=== PATIENT | male | born 1960 | race Caucasian/White ===

== ENCOUNTER 2022-05-26 11:10 | Inpatient (IN) ==
[2022-05-26] MEDS ORDERED: IOPAMIDOL 100 ML BOTTLE IV ONE (11:11)
--- NOTE | 2022-05-26 11:30 | Emergency Department Note ---
HPI General Chief complaint: Abdominal Pain Stated complaint: Bowl obstruction Time Seen by Provider: 05/26/22 11:29 Source: patient Mode of arrival: ambulatory Limitations: no limitations History of Present Illness HPI Narrative: Narrative: Patient is a 61 yo male who presents to the emergency department from the [facility] due to concern for SBO. Patient endorses 4 days of abdominal pain and states that he has days without a bowel movement. He states that he has also had a decrease in gas. He states that he had one other episode of SBO 10 to 15 years ago. He states that this feels the same as that episode. Related Data Home Medications Medication Instructions Recorded Confirmed hydrochlorothiazide 12.5 mg tablet 12.5 mg PO QAM 08/16/20 05/26/22 amlodipine 10 mg tablet 5 mg PO QAM 03/30/22 05/26/22 benazepril 10 mg tablet 40 mg PO QAM 03/30/22 05/26/22 escitalopram oxalate 10 mg tablet 20 mg PO QDAY 03/30/22 05/26/22 (Lexapro) finasteride 5 mg tablet 5 mg PO QPM 03/30/22 05/26/22 pyridostigmine bromide 60 mg tablet 60 mg PO QAM 03/30/22 05/26/22 naproxen sodium 220 mg tablet 440 mg PO QHS 05/15/22 05/26/22 dextroamphetamine-amphetamine 10 1 tab PO QDAY 05/22/22 05/26/22 mg tablet solifenacin 5 mg tablet 5 mg PO QPM 05/22/22 05/26/22 tadalafil 5 mg tablet 5 mg PO QPM 05/22/22 05/26/22 trazodone 50 mg tablet 100 mg PO QHS 05/22/22 05/26/22 Previous Rx's Medication Instructions Recorded tamsulosin 0.4 mg capsule 0.4 mg PO QHS #30 caps 04/10/22 Allergies Allergy/AdvReac Type Severity Reaction Status Date / Time Tetanus Vaccines and Toxoid Allergy Intermediate Swelling Verified 05/26/22 11:11 Review of Systems ROS ROS Narrative: Narrative: Constitutional: Denies fever or weakness Eyes: Denies eye pain or vision change ENT ED: Denies throat pain, hearing loss or rhinorrhea Cardiovascular: Denies chest pain, dyspnea on exertion, orthopnea or edema Respiratory: Denies shortness of breath or cough Gastrointestinal: Reports abdominal pain and constipation; Denies diarrhea, hematochezia or melena Genitourinary: Denies dysuria, frequency, hematuria or incontinence Musculoskeletal: Denies back pain or myalgia Integumentary: Denies rash or lesions Neurological: Denies headache, weakness, numbness, confusion, abnormal gait or dizziness Psychiatric: Denies anxiety, suicidal thoughts or homicidal thoughts Endocrine: Denies fatigue or polyuria Hematological/Lymphatic: Denies easy bleeding or easy bruising PFS Narrative Patient History Narrative: Narrative: Medical/Surgical/Family History All Active Problems (Updated 05/26/22 @ 18:16 by Minh Pleitez MD) SBO (small bowel obstruction) (Acute) Acute URI (Chronic) Pain, joint, shoulder, right (Chronic) Other obesity due to excess calories (Chronic) Equinus contracture of ankle (Chronic) Plantar fasciitis, left (Chronic) Hypertension (Chronic) Elevated liver enzymes (Chronic) Decreased renal function (Chronic) ADD (attention deficit disorder) (Chronic) Myasthenia gravis with (acute) exacerbation (Chronic) Chronic insomnia (Chronic) 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) Rotator cuff injury (Chronic) Renal structural abnormality (Acute) Atrophy of right kidney (Acute) Obstruction of left ureteropelvic junction (UPJ) (Acute) Duplicated renal collecting system (Acute) Medical History Acute URI ADD (attention deficit disorder) Chronic insomnia Decreased renal function Elevated liver enzymes Equinus contracture of ankle Hypertension Myasthenia gravis with (acute) exacerbation Other obesity due to excess calories Pain, joint, shoulder, right Plantar fasciitis, left Rotator cuff injury Varicose veins of bilateral lower extremities with other complications Surgical History History of colonoscopy (~2004) History of knee surgery Bilateral - meniscus History of surgery (~1971) re-plumbed kidney History of thymectomy History of tonsillectomy Family History Mother Hypertension Social History Smoking Status: Never smoker Alcohol Intake Frequency: 0-2 drinks per day Substance Use: does not use Exam Narrative Narrative: Narrative: General Limitations: no limitations General appearance: Present alert; Absent anxious or appears intoxicated Head Head: Present atraumatic and normocephalic Eye Eye: Present PERRL and EOMI; Absent scleral icterus ENT ENT: Present mucous membranes moist; Absent nasal congestion Neck Neck: Present full ROM; Absent tenderness Chest Chest: Present normal inspection and symmetric chest wall rise; Absent tenderness Respiratory Respiratory: Present normal lung sounds bilaterally; Absent respiratory distress or accessory muscle use Cardiovascular Cardiovascular: Present regular rate, normal rhythm and normal heart sounds Adbominal Abdominal: Present soft, tenderness and diminished bowel sounds; Absent normal bowel sounds Extremities Extremities: Present normal inspection and full ROM; Absent tenderness Back Back: Present normal inspection and full ROM; Absent tenderness Neurological Neurological: Present alert and oriented X3 Psychiatric Psychiatric: Present normal affect and normal mood Skin Skin: Present warm (WNL), dry and normal color Course Vital Signs Vital signs: Vital Signs Temperature 98.4 F 05/26/22 11:11 Pulse Rate 88 05/26/22 11:11 Respiratory Rate 18 05/26/22 11:11 Blood Pressure 153/90 05/26/22 11:11 Pulse Oximetry (%) 98 05/26/22 11:11 Oxygen Delivery Method 05/26/22 11:11 Temperature 98.7 F 05/29/22 16:42 Pulse Rate 79 05/29/22 16:42 Respiratory Rate 20 05/29/22 16:42 Blood Pressure 158/89 05/29/22 16:42 Pulse Oximetry (%) 96 05/29/22 16:42 Oxygen Delivery Method 05/29/22 16:42 [facility] MDM Narrative Medical decision making narrative: Narrative: Patient is a 61 yo male who presents to the emergency department from the [facility] due to concern for SBO. Given patient's history of SBO, decrease in bowel movements and gas, it is possible that patient has a small bowel obstruction. Patient's CT scan does demonstrate a partial SBO. I have spoken with surgery who agrees to see and evaluate patient. They did request a hospitalist admission due to patient history of myasthenia gravis. I have spoken to Dr. Moreira who also agrees to see and evaluate this patient for admission. Lab Data Result diagrams: 05/28/22 05:34 05/28/22 05:34 Labs: Lab Results 05/26/22 05/26/22 05/26/22 Range/Units 12:37 12:37 12:46 WBC 10.9 (4.5-11.0) K/mcL RBC 5.11 (4.63-6.08) M/mcL Hgb 16.3 (13.7-17.5) g/dL Hct 47.8 (40.1-51.0) % POC Hct 49.0 (41-55) MCV 93.5 (80.0-100.0) fL MCH 31.9 (26.0-34.0) pg MCHC 34.1 (31.0-36.0) g/dL RDW 11.8 (11.5-14.5) % Plt Count 213 (140-440) K/mcL MPV 10.4 (7.4-10.4) fL Immature Gran % (Auto) 0.2 (0.0-0.5) % Neut % (Auto) 76.3 (38.0-78.0) % Lymph % (Auto) 14.5 L (15.5-49.0) % [place] % (Auto) 8.0 (1.0-12.0) % Eos % (Auto) 0.8 (0.0-7.0) % Baso % (Auto) 0.2 (0.0-2.0) % Lymph # (Auto) 1.58 (1.50-4.80) K/mcL [place] # (Auto) 0.87 (0.10-0.90) K/mcL Eos # (Auto) 0.09 (0.00-0.70) K/mcL Baso # (Auto) 0.02 (0.00-0.30) K/mcL Immature Gran # 0.02 (0.00-0.05) K/mcl Absolute Neutrophils 8.30 H (1.80-8.00) K/mcL POC Sodium 141 (133-145) POC Potassium 4.3 (3.3-5.1) POC Chloride 103 (96-108) POC Total CO2 32.0 H (22-30) POC BUN 27 H (6-20) POC Creatinine 1.6 H (0.6-1.2) POC Glucose 110 H (70-105) POC WB Ioniz Calcium 1.22 (1.16-1.32) Total Bilirubin 0.8 (0.1-1.0) mg/dL Direct Bilirubin 0.2 (<0.3) mg/dL AST 22 (<40) U/L ALT 25 (<40) U/L Alkaline Phosphatase 68 (39-117) U/L Total Protein 6.7 (5.9-8.4) gm/dL Albumin 4.1 (3.2-5.2) gm/dL Globulin 2.6 (2.2-3.7) gm/dL Lipase 15 (7-60) U/L Urine Color Urine Appearance (Clear) Urine pH (5.0-9.0) Ur Specific [place] (1.000-1.035) Urine Protein (Negative) mg/dL Urine Glucose (UA) (Negative) mg/dL Urine Ketones (Negative) mg/dL Urine Occult Blood (Negative) bo/mcL Urine Nitrate (Negative) Urine Bilirubin (Negative) mg/dL Urine Urobilinogen mg/dL Ur Leukocyte Esterase (Negative) /uL Urine RBC (0-3) /hpf Urine WBC (0-4) /hpf Ur Squamous Epith Cells (0-4) /hpf Urine Bacteria (0) /hpf Hyaline Casts (0-2) /lph Urine Mucus (None) /hpf Ur Culture Indicated? 05/26/22 Range/Units 14:50 WBC (4.5-11.0) K/mcL RBC (4.63-6.08) M/mcL Hgb (13.7-17.5) g/dL Hct (40.1-51.0) % POC Hct (41-55) MCV (80.0-100.0) fL MCH (26.0-34.0) pg MCHC (31.0-36.0) g/dL RDW (11.5-14.5) % Plt Count (140-440) K/mcL MPV (7.4-10.4) fL Immature Gran % (Auto) (0.0-0.5) % Neut % (Auto) (38.0-78.0) % Lymph % (Auto) (15.5-49.0) % [place] % (Auto) (1.0-12.0) % Eos % (Auto) (0.0-7.0) % Baso % (Auto) (0.0-2.0) % Lymph # (Auto) (1.50-4.80) K/mcL [place] # (Auto) (0.10-0.90) K/mcL Eos # (Auto) (0.00-0.70) K/mcL Baso # (Auto) (0.00-0.30) K/mcL Immature Gran # (0.00-0.05) K/mcl Absolute Neutrophils (1.80-8.00) K/mcL POC Sodium (133-145) POC Potassium (3.3-5.1) POC Chloride (96-108) POC Total CO2 (22-30) POC BUN (6-20) POC Creatinine (0.6-1.2) POC Glucose (70-105) POC WB Ioniz Calcium (1.16-1.32) Total Bilirubin (0.1-1.0) mg/dL Direct Bilirubin (<0.3) mg/dL AST (<40) U/L ALT (<40) U/L Alkaline Phosphatase (39-117) U/L Total Protein (5.9-8.4) gm/dL Albumin (3.2-5.2) gm/dL Globulin (2.2-3.7) gm/dL Lipase (7-60) U/L Urine Color Yellow Urine Appearance Clear (Clear) Urine pH 7.0 (5.0-9.0) Ur Specific [place] 1.020 (1.000-1.035) Urine Protein Trace A (Negative) mg/dL Urine Glucose (UA) Negative (Negative) mg/dL Urine Ketones Negative (Negative) mg/dL Urine Occult Blood Negative (Negative) bo/mcL Urine Nitrate Negative (Negative) Urine Bilirubin Negative (Negative) mg/dL Urine Urobilinogen Normal mg/dL Ur Leukocyte Esterase Negative (Negative) /uL Urine RBC < 1 (0-3) /hpf Urine WBC 2 (0-4) /hpf Ur Squamous Epith Cells 0 (0-4) /hpf Urine Bacteria None (0) /hpf Hyaline Casts 1 (0-2) /lph Urine Mucus Few A (None) /hpf Ur Culture Indicated? No Discharge Plan Patient/Caregiver Discharge Instructions Pt seen by HOME HEALTH CARE SOCIAL WORKER/PA only: No Activity: increase activity as tolerated Patient Disposition: Xfer As Inpt ([facility]) Discharge Date/Time: 05/26/22 17:05
[2022-05-26] MEDS ORDERED: morphine 4 MG/ML VIAL IV ONE ×2 (12:29→16:17)
[2022-05-26] MEDS ORDERED: ONDANSETRON 4 MG/2 ML VIAL IV ONE (12:30)
[2022-05-26] MEDS ORDERED: 0.9 % SODIUM CHLORIDE 1,000 ML IV ONE (12:46)
[2022-05-26 12:55] LABS: POC Calcium, Ionized 1.22 (1.16-1.32); POC Creatinine 1.6 (0.6-1.2); POC Potassium 4.3 (3.3-5.1)
[2022-05-26 13:09] LABS: Basophils # (Auto) 0.02 K/mcL (0.00-0.30); Basophils % (Auto) 0.2 % (0.0-2.0); Eosinophils # (Auto) 0.09 K/mcL (0.00-0.70); Eosinophils % (Auto) 0.8 % (0.0-7.0); Hematocrit 47.8 % (40.1-51.0); Hemoglobin 16.3 g/dL (13.7-17.5); Lymphocytes # (Auto) 1.58 K/mcL (1.50-4.80); Lymphocytes % (Auto) 14.5 % (15.5-49.0); Mean Cell Volume 93.5 fL (80.0-100.0); Mean Corpuscular HGB Conc 34.1 g/dL (31.0-36.0); Mean Platelet Volume 10.4 fL (7.4-10.4); Monocytes # (Auto) 0.87 K/mcL (0.10-0.90); Neutrophils % (Auto) 76.3 % (38.0-78.0); Platelet Count 213 K/mcL (140-440); RBC 5.11 M/mcL (4.63-6.08); Red Cell Distribution Width 11.8 % (11.5-14.5); WBC 10.9 K/mcL (4.5-11.0)
[2022-05-26 13:39] LABS: ALT/SGPT 25 U/L (<40); AST/SGOT 22 U/L (<40); Albumin 4.1 gm/dL (3.2-5.2); Alkaline Phosphatase 68 U/L (39-117); Bilirubin,Direct 0.2 mg/dL (<0.3); Bilirubin,Total 0.8 mg/dL (0.1-1.0); Globulin 2.6 gm/dL (2.2-3.7)
--- NOTE | 2022-05-26 14:35 | Cat Scan Report ---
CLINICAL INFORMATION: Abdominal pain and distention COMPARISON: CT IVP 04/14/2022. TECHNIQUE: Following enteric contrast, 80 cc of Isovue-370 were injected intravenously, and 60 seconds later, 0.625 mm helical slices were obtained from the mid heart through the subtrochanteric regions. Following reconstruction, 2.5 mm sagittal, coronal and axial reformatted images were processed and reviewed at bone, lung and soft tissue windows. Five minutes later, 0.625 mm helical slices were obtained from the mid heart through the kidneys and viewed at soft tissue windows.The exam was performed using radiation dose optimization techniques including, but not limited to, automated exposure control, adjustment of the mA and/or kV according to patient size and use of iterative reconstruction technique. FINDINGS: The lung bases are clear. No effusions. The visualized heart is grossly normal. Abdominal images show the gallbladder and bile ducts, liver, adrenal glands, spleen, pancreas and aorta, including aortic branches, are normal in size, configuration and attenuation without focal lesion. There is no free air, free fluid or adenopathy. Moderate atrophy of the right kidney (length 7 cm). There is compensatory hypertrophy of the left kidney: (length 16 cm). 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 There are two nonobstructing stones within an inferior calyx of the left kidney both less than 3 mm. No ureteral stones. Pelvic images show normal urinary bladder, prostate and seminal vesicles. There are multiple loops of proximal jejunum which are moderately dilated and the upper abdomen. Transition point is best seen on coronal image 63 and axial image 125. There is likely a stricture in this region. The small bowel and colon, distal to the transition point, are decompressed. There is no free air, free fluid no adenopathy. Bone windows show no osseous abnormality IMPRESSION: 1. Partial small bowel obstruction of the mid jejunum due to adhesions or stricture. 2. 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 Two 3 mm nonobstructing stones present in the inferior calyx of the left kidney. No obstructing ureteral stone 3. Moderate atrophy right kidney with compensatory hypertrophy of the left kidney. Interpreted and Authenticated by: Navarro Cordova 05/26/22
[2022-05-26 16:08] LABS: Appearance,Urine Clear (Clear); Bilirubin,Urine Negative (Negative); Color,Urine Yellow; Culture Indicated,Urine No; Glucose,Urine (UA) Negative (Negative); Ketones,Urine Negative (Negative); Leukocyte Esterase,Urine Negative /uL (Negative); Mucus,Urine FEW /hpf; Nitrate,Urine Negative (Negative); Protein,Urine Trace mg/dL (Negative); Urine Blood Negative ery/mcL (Negative); Urine Hyaline Cast 1 /lph (0-2); Urine RBC < 1 /hpf (0-3); Urine Squamous Epithelial Cell 0 /hpf (0-4); Urine WBC 2 /hpf (0-4); Urobilinogen,Urine Normal
--- NOTE | 2022-05-26 16:15 | XRay Report ---
CLINICAL INFORMATION: NG placement COMPARISON: None. TECHNIQUE: PA and Lateral views FINDINGS: The heart size, mediastinum and pulmonary vessels are unremarkable. The lungs are clear. There are no effusions. The bones and soft tissues are within normal limits. NG tube overlies the gastric body IMPRESSION: NG tube overlies the gastric body. No cardiopulmonary disease Interpreted and Authenticated by: Navarro Cordova 05/26/22
--- NOTE | 2022-05-26 16:20 | Internal Medicine Consult Note ---
HPI Data of Consult Consult date: 05/26/22 Primary Care Provider: Kell Pandey Consult Narrative Patient Information: Note initiated : 05/26/22 at 4:15 pm Service Date, if different from initiated Date: [] Patient: Osman Messer 61 y/o M admitted on for Bowl obstruction. Chief Complaint: [] cc:: CC: Patient presents the ED with abdominal pain nausea vomiting. Symptoms started yesterday morning and progressed. His abdominal pain is generalized with more specially in the upper abdomen.'s, severe achy. Last bowel movement was unusually small this morning. Obstruction had was [address] Pleitez was contacted. Patient carries a history of chronic kidney disease and myasthenia gravis and hypertension. Review of Systems: Pertinent positives as above. Denies headache/fever/chills/chest pain/cough/dyspnea/diarrhea. 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) Rotator cuff injury (Chronic) Renal structural abnormality (Acute) Atrophy of right kidney (Acute) Obstruction of left ureteropelvic junction (UPJ) (Acute) Duplicated renal collecting system (Acute) Medical History Acute URI ADD (attention deficit disorder) Chronic insomnia Decreased renal function Elevated liver enzymes Equinus contracture of ankle Hypertension Myasthenia gravis with (acute) exacerbation Other obesity due to excess calories Pain, joint, shoulder, right Plantar fasciitis, left Rotator cuff injury Varicose veins of bilateral lower extremities with other complications Surgical History History of colonoscopy (~2004) History of knee surgery Bilateral - meniscus History of surgery (~1971) re-plumbed kidney History of thymectomy History of tonsillectomy Family History Mother Hypertension Social History marital status: occupational status: retired occupation: [employer] smoking status: Never smoker alcohol intake frequency: 0-2 drinks per day substance use type: does not use MEDS/ALLERGIES Home Medications and Allergies Home Medications Medication Instructions Recorded Confirmed Type hydrochlorothiazide 12.5 mg tablet 12.5 mg PO QAM 08/16/20 05/26/22 History amlodipine 10 mg tablet 5 mg PO QAM 03/30/22 05/26/22 History benazepril 10 mg tablet 40 mg PO QAM 03/30/22 05/26/22 History escitalopram oxalate 10 mg tablet 20 mg PO QDAY 03/30/22 05/26/22 History (Lexapro) finasteride 5 mg tablet 5 mg PO QPM 03/30/22 05/26/22 History pyridostigmine bromide 60 mg tablet 60 mg PO QAM 03/30/22 05/26/22 History tamsulosin 0.4 mg capsule 0.4 mg PO QHS #30 caps 04/10/22 05/26/22 Rx naproxen sodium 220 mg tablet 440 mg PO QHS 05/15/22 05/26/22 History dextroamphetamine-amphetamine 10 1 tab PO QDAY 05/22/22 05/26/22 History mg tablet solifenacin 5 mg tablet 5 mg PO QPM 05/22/22 05/26/22 History tadalafil 5 mg tablet 5 mg PO QPM 05/22/22 05/26/22 History trazodone 50 mg tablet 100 mg PO QHS 05/22/22 05/26/22 History Allergies Allergy/AdvReac Type Severity Reaction Status Date / Time Tetanus Vaccines and Toxoid Allergy Intermediate Swelling Verified 05/26/22 11:11 EXAM Constitutional Vitals: Temp Pulse Resp BP Pulse Ox O2 Del Method 98.4 F 81 18 145/98 96 05/26/22 11:11 05/26/22 16:01 05/26/22 11:11 05/26/22 16:01 05/26/22 16:01 05/26/22 11:11 Exam: General: Alert, Awake, No acute Distress, obese Eyes/N/T: EOMI, PERRL, MM Head/Neck: neck supple, normocephalic atraumatic CV: RRR, No murmurs, normal s1/s2 Pulm: Clear b/l, no wheezing/rhonchi/rales Abd: soft, distended, TTP, decreased BS x4 Ext: no clubbing/cyanosis/edema Neuro: Alert, no focal deficits, moves all extremities, CN 2-12 grossly intact, symmetrical strength b/l upper/lower, sensations intact b/l upper/lower Skin: warm/dry DATA Data Completed and Pending Labs: Labs from last 24 hours 05/26/22 05/26/22 05/26/22 14:50 12:46 12:37 WBC RBC Hgb Hct POC Hct 49.0 MCV MCH MCHC RDW Plt Count MPV Immature Gran % (Auto) Neut % (Auto) Lymph % (Auto) [place] % (Auto) Eos % (Auto) Baso % (Auto) Lymph # (Auto) [place] # (Auto) Eos # (Auto) Baso # (Auto) Immature Gran # Absolute Neutrophils POC Sodium 141 POC Potassium 4.3 POC Chloride 103 POC Total CO2 32.0 H POC BUN 27 H POC Creatinine 1.6 H POC Glucose 110 H POC WB Ioniz Calcium 1.22 Total Bilirubin 0.8 Direct Bilirubin 0.2 AST 22 ALT 25 Alkaline Phosphatase 68 Total Protein 6.7 Albumin 4.1 Globulin 2.6 Lipase 15 Urine Color Yellow Urine Appearance Clear Urine pH 7.0 Ur Specific [place] 1.020 Urine Protein Trace A Urine Glucose (UA) Negative Urine Ketones Negative Urine Occult Blood Negative Urine Nitrate Negative Urine Bilirubin Negative Urine Urobilinogen Normal Ur Leukocyte Esterase Negative Urine RBC < 1 Urine WBC 2 Ur Squamous Epith Cells 0 Urine Bacteria None Hyaline Casts 1 Urine Mucus Few A Ur Culture Indicated? No 05/26/22 12:37 WBC 10.9 RBC 5.11 Hgb 16.3 Hct 47.8 POC Hct MCV 93.5 MCH 31.9 MCHC 34.1 RDW 11.8 Plt Count 213 MPV 10.4 Immature Gran % (Auto) 0.2 Neut % (Auto) 76.3 Lymph % (Auto) 14.5 L [place] % (Auto) 8.0 Eos % (Auto) 0.8 Baso % (Auto) 0.2 Lymph # (Auto) 1.58 [place] # (Auto) 0.87 Eos # (Auto) 0.09 Baso # (Auto) 0.02 Immature Gran # 0.02 Absolute Neutrophils 8.30 H POC Sodium POC Potassium POC Chloride POC Total CO2 POC BUN POC Creatinine POC Glucose POC WB Ioniz Calcium Total Bilirubin Direct Bilirubin AST ALT Alkaline Phosphatase Total Protein Albumin Globulin Lipase Urine Color Urine Appearance Urine pH Ur Specific [place] Urine Protein Urine Glucose (UA) Urine Ketones Urine Occult Blood Urine Nitrate Urine Bilirubin Urine Urobilinogen Ur Leukocyte Esterase Urine RBC Urine WBC Ur Squamous Epith Cells Urine Bacteria Hyaline Casts Urine Mucus Ur Culture Indicated? A/P Narrative A/P Narrative: A/P: *pSBO: -diet/fluids, NGT, imaging per Dr. Pleitez *Myasthenia gravis: -Patient takes pyridostigmine 60mg qAM & sometimes in evening if he feels he needs it. -Home medication reconciliation *HTN: on norvasc/acei, hctz -IV BP control for now, hold oral BP meds *Depression: *Obesity: BMI 36 *ppx: heparin Time Spent With Patient Time: Total time spent is greater than 50% in coordination of care (as documented) at patient's floor/unit and/or counseling patient:
[2022-05-26] MEDS ORDERED: ACETAMINOPHEN 325 MG TABLET PO PRN (17:17)
[2022-05-26] MEDS ORDERED: MAGNESIUM SULFATE 2 GM/50 ML BAG IV PRN (17:17)
[2022-05-26] MEDS ORDERED: IPRATROPIUM/ALBUTEROL 3 ML AMPUL.NEB NEB PRN (17:17)
[2022-05-26] MEDS ORDERED: hydrALAZINE 20 MG/ML VIAL IV PRN (17:17)
[2022-05-26] MEDS ORDERED: ONDANSETRON 4 MG/2 ML VIAL IV PRN (17:17)
[2022-05-26] MEDS ORDERED: POTASSIUM CHLORIDE 20 MEQ TABLET PO PRN ×2 (17:17)
[2022-05-26] MEDS ORDERED: morphine 4 MG/ML VIAL IV PRN (17:17)
[2022-05-26] MEDS ORDERED: POTASSIUM CHLORIDE 40 MEQ in DEXTROSE 5% IN WATER 500 ML IV PRN (17:17)
[2022-05-26] MEDS: DEXTROSE 5%-LR 1,000 ML IV SCH (18:11)
--- NOTE | 2022-05-26 18:22 | General Surg History&Physical ---
HPI History of Present Illness Patient information: Note initiated : 05/26/22 at 6:02 pm Service Date, if different from initiated Date: [] Patient: Osman Messer 61 y/o M admitted on 05/26/22 for Bowl obstruction. Chief Complaint: [] Chief complaint: Abdominal Pain and Distension History of present illness: Osman is seen today after a week or so long history of worsening abdominal pain, distension with some emesis and minimal passage of gas and stool. Imaging including a CT Scan was obtained and findings suggestive of a SBO were noted. He has a past surgical history that includes an open operation on the Right Kidney many years ago at age 13 but no other abdominal operations since. He had a bout of presumed SBO 12 or so years ago that was managed non operatively. He denies any history of malignancy or Crohns, Ulcerative Colitis or other GI issues. He also denies any known heart issues and is not on any oral anticoagulants. He has been diagnosed with Sleep Apnea but rarely uses his CPAP. He has some pain now but feels much improved relative to arrival here. Review of Systems All systems: reviewed and no additional remarkable complaints except as stated Constitutional Additional comments: no changes EENT Additional comments: history of myasthenia but no recent issues Cardiovascular Additional comments: see HPI Respiratory Additional comments: has Sleep Apnea, prescribed a CPAP Gastrointestinal Gastrointestinal: Present as per HPI Genitourinary Additional comments: Congenital kidney issues with upcoming plans for stenting Integumentary Additional comments: no recent skin changes Neurological Additional comments: no changes Psychiatric Additional comments: no changes PFSH PFSH All Active Problems (Updated 05/26/22 @ 18:16 by Minh Pleitez MD) SBO (small bowel obstruction) (Acute) Acute URI (Chronic) Pain, joint, shoulder, right (Chronic) Other obesity due to excess calories (Chronic) Equinus contracture of ankle (Chronic) Plantar fasciitis, left (Chronic) Hypertension (Chronic) Elevated liver enzymes (Chronic) Decreased renal function (Chronic) ADD (attention deficit disorder) (Chronic) Myasthenia gravis with (acute) exacerbation (Chronic) Chronic insomnia (Chronic) 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) Rotator cuff injury (Chronic) Renal structural abnormality (Acute) Atrophy of right kidney (Acute) Obstruction of left ureteropelvic junction (UPJ) (Acute) Duplicated renal collecting system (Acute) Medical History Acute URI ADD (attention deficit disorder) Chronic insomnia Decreased renal function Elevated liver enzymes Equinus contracture of ankle Hypertension Myasthenia gravis with (acute) exacerbation Other obesity due to excess calories Pain, joint, shoulder, right Plantar fasciitis, left Rotator cuff injury Varicose veins of bilateral lower extremities with other complications Surgical History History of colonoscopy (~2004) History of knee surgery Bilateral - meniscus History of surgery (~1971) re-plumbed kidney History of thymectomy History of tonsillectomy Family History Mother Hypertension Social History marital status: occupational status: retired occupation: [employer] smoking status: Never smoker alcohol intake frequency: 0-2 drinks per day substance use type: does not use MEDS/ALLERGIES Home Medications and Allergies Home Medications Medication Instructions Recorded Confirmed Type hydrochlorothiazide 12.5 mg tablet 12.5 mg PO QAM 08/16/20 05/26/22 History amlodipine 10 mg tablet 5 mg PO QAM 03/30/22 05/26/22 History benazepril 10 mg tablet 40 mg PO QAM 03/30/22 05/26/22 History escitalopram oxalate 10 mg tablet 20 mg PO QDAY 03/30/22 05/26/22 History (Lexapro) finasteride 5 mg tablet 5 mg PO QPM 03/30/22 05/26/22 History pyridostigmine bromide 60 mg tablet 60 mg PO QAM 03/30/22 05/26/22 History tamsulosin 0.4 mg capsule 0.4 mg PO QHS #30 caps 04/10/22 05/26/22 Rx naproxen sodium 220 mg tablet 440 mg PO QHS 05/15/22 05/26/22 History dextroamphetamine-amphetamine 10 1 tab PO QDAY 05/22/22 05/26/22 History mg tablet solifenacin 5 mg tablet 5 mg PO QPM 05/22/22 05/26/22 History tadalafil 5 mg tablet 5 mg PO QPM 05/22/22 05/26/22 History trazodone 50 mg tablet 100 mg PO QHS 05/22/22 05/26/22 History Allergies Allergy/AdvReac Type Severity Reaction Status Date / Time Tetanus Vaccines and Toxoid Allergy Intermediate Swelling Verified 05/26/22 11:11 Physical Examination Vital Signs Vital signs: Temp Pulse Resp BP Pulse Ox O2 Del Method 98.4 F 81 18 145/98 96 05/26/22 17:24 05/26/22 17:24 05/26/22 17:24 05/26/22 17:24 05/26/22 17:24 05/26/22 17:19 General physical appearance General physical exam: other (looks non toxic, NAD ) Eyes Eye exam: normal ocular movement; negative icteric ENT ENT exam: other (normal appearing facial exam ) Head Head exam IM: Present atraumatic, normal inspection and normocephalic Neck Neck exam: other (soft and non tender, no adenopathy ) Cardiovascular Cardiovascular exam IM: Present RRR Respiratory Respiratory exam: normal respiratory effort Abdomen Abdomen: Present soft (obese, soft, minimally tender, no mass or hernia noted ) Integumentary Integumentary: Present other (normal appearing intact skin ) Neurologic Neurologic: Present other (grossly intact ) Psychiatric Psychiatric: Present other (normal affect ) Results Labs Result diagrams: 05/26/22 12:37 Labs: Abnormal lab results 05/26/22 05/26/22 05/26/22 Range/Units 12:37 12:46 14:50 Lymph % (Auto) 14.5 L (15.5-49.0) % Absolute Neutrophils 8.30 H (1.80-8.00) K/mcL POC Total CO2 32.0 H (22-30) POC BUN 27 H (6-20) POC Creatinine 1.6 H (0.6-1.2) POC Glucose 110 H (70-105) Urine Protein Trace A (Negative) mg/dL Urine Mucus Few A (None) /hpf Diabetes panel 05/26/22 Range/Units 12:37 AST 22 (<40) U/L ALT 25 (<40) U/L Alkaline Phosphatase 68 (39-117) U/L Total Protein 6.7 (5.9-8.4) gm/dL Albumin 4.1 (3.2-5.2) gm/dL Calcium panel 05/26/22 Range/Units 12:37 Albumin 4.1 (3.2-5.2) gm/dL Adrenal panel 05/26/22 Range/Units 12:37 Total Bilirubin 0.8 (0.1-1.0) mg/dL AST 22 (<40) U/L ALT 25 (<40) U/L Alkaline Phosphatase 68 (39-117) U/L Total Protein 6.7 (5.9-8.4) gm/dL Albumin 4.1 (3.2-5.2) gm/dL All other labs normal. A/P Assessment and plan (1) SBO (small bowel obstruction): Assessment and plan: Small Bowel Obstruction, presumed adhesion related without indications for emergent operative intervention Will manage for now with NGT decompression, IVFs, pain control and observational management Issues are discussed at length with he and his . The potential need for surgery in the coming days if this doesn't resolve or worsens is discussed at length Appreciate Hospitalist Consultation regarding his Myasthenia and any other or underlying medical issues Status: Acute Time Spent With Patient Time: Total time spent is greater than 50% in coordination of care (as documented) at patient's floor/unit and/or counseling patient:
[2022-05-26] MEDS ORDERED: TAMSULOSIN 0.4 MG CAPSULE PO SCH (21:00)
[2022-05-26] MEDS: TAMSULOSIN 0.4 MG CAPSULE PO SCH (21:36)
[2022-05-26] MEDS: HEPARIN 5,000 UNIT/ML VIAL SQ SCH (21:37)
[2022-05-26] MEDS: 0.9 % SODIUM CHLORIDE 10 ML SYRINGE IV SCH (21:37)
[2022-05-26] MEDS: PROMETHAZINE 25 MG/ML VIAL IV PRN (22:45)
[2022-05-27] MEDS: DEXTROSE 5%-LR 1,000 ML IV SCH ×4 (00:55→22:23)
[2022-05-27] MEDS: BENZOCAINE 1 SPRAY BOTTLE TOPICAL PRN ×5 (01:04→20:20)
[2022-05-27] MEDS: 0.9 % SODIUM CHLORIDE 10 ML SYRINGE IV SCH ×3 (05:06→20:21)
[2022-05-27 06:53] LABS: Hematocrit 45.2 % (40.1-51.0); Hemoglobin 14.7 g/dL (13.7-17.5); Mean Cell Volume 97.8 fL (80.0-100.0); Mean Corpuscular HGB Conc 32.5 g/dL (31.0-36.0); Mean Platelet Volume 10.2 fL (7.4-10.4); Platelet Count 210 K/mcL (140-440); RBC 4.62 M/mcL (4.63-6.08); WBC 7.1 K/mcL (4.5-11.0)
--- NOTE | 2022-05-27 07:26 | Internal Med Progress Note ---
SUBJECTIVE Subjective Patient information: Note initiated : 05/27/22 at 7:24 am Service Date, if different from initiated Date: [] Patient: Osman Messer 61 y/o M admitted on 05/26/22 for Bowl obstruction. Chief Complaint: [] Interval history: Patient presents the ED with abdominal pain nausea vomiting. Symptoms started yesterday morning and progressed. His abdominal pain is generalized with more specially in the upper abdomen.'s, severe achy. Last bowel movement was unusually small this morning. Obstruction had was [address] Pleitez was contacted. Patient carries a history of chronic kidney disease and myasthenia gravis and hy pertension. 05/27 Patient's nausea is present but improving. Abdominal pain present but improving. NG tube in place with output. Patient denies bowel movement but states he has flatus this morning. Review of Systems: denies headache/fever/chills/chest pain/cough/dyspnea/diarrhea. Otherwise see above. Constitutional Vitals: Vital Signs Temp Pulse Resp BP Pulse Ox O2 Del Method 98.0 F 74 16 134/80 93 05/27/22 03:15 05/27/22 03:15 05/27/22 03:15 05/27/22 03:15 05/27/22 03:15 05/27/22 03:15 Period Temp Pulse Resp BP Sys/Briseno Pulse Ox O2 Del Method O2 Flow Rate Last 24 Hr 97.6 F-98.9 F 64-88 12-18 130-173/79-110 93-99 Room Air-Room Air Intake and Output 05/26/22 05/27/22 05/27/22 21:59 05:59 13:59 Intake Total 1300 1000 Output Total 1075 1750 Balance 225 -750 Weight 127.732 kg Intake & Output: Intake & Output 05/26/22 05/27/22 05/27/22 21:59 05:59 13:59 Intake Total 1300 1000 Output Total 1075 1750 Balance 225 -750 Weight 127.732 kg Intake: IV 1000 1000 Sodium Chloride 0.9% 1,000 ml @ 1000 Wide Open IV BOLUS ONE Rx#: [id number] Dextrose 5%-Lactated Ringers 1, 1000 000 ml @ 150 mls/hr IV .Q6H40M [facility] Rx#:[id number] Oral 300 0 Tube Feeding 0 Output: Gastric Drainage 600 1400 Left Nare 600 1400 Void Amount 475 350 Other: Urine Appearance Clear Clear Urine Color Dark Yellow Dark Yellow Exam: General: Alert, Awake, No acute Distress, obese Eyes/N/T: EOMI, Head/Neck: neck supple, CV: RRR, No murmurs, Pulm: Clear b/l, no wheezing/rhonchi/rales Abd: soft, distended, TTP, decreased BS x4 Ext: no clubbing/cyanosis/edema Neuro: Alert, no focal deficits, moves all extremities, Skin: warm/dry OBJ DATA Labs CBC & Chem 7: 05/27/22 05:54 05/27/22 05:54 Labs: Abnormal Lab Results 05/27/22 05/26/22 05/26/22 05:54 14:50 12:46 RBC 4.62 L Lymph % (Auto) Absolute Neutrophils POC Total CO2 32.0 H POC BUN 27 H POC Creatinine 1.6 H POC Glucose 110 H Urine Protein Trace A Urine Mucus Few A 05/26/22 12:37 RBC Lymph % (Auto) 14.5 L Absolute Neutrophils 8.30 H POC Total CO2 POC BUN POC Creatinine POC Glucose Urine Protein Urine Mucus Meds: Medications Acetaminophen (Acetaminophen 325 Mg Tablet) 650 mg PO Q6HP PRN; Protocol PRN Reason: Per Pain Protocol/Fever > 101 Albuterol/Ipratropium (Ipratropium/Albuterol 3 Ml Ampul.Neb) 3 ml NEB Q4HP PRN PRN Reason: Shortness Of Breath Benzocaine (Benzocaine 1 [place] Bottle) 1 spray TOPICAL PRN PRN PRN Reason: Sore Throat Last Admin: 05/27/22 06:02 Dose: 1 spray Finasteride (Finasteride 5 Mg Tablet) 5 mg PO QPM [facility] Heparin Sodium (Porcine) (Heparin 5,000 Unit/Ml Vial) 5,000 unit SQ Q12 [facility] Last Admin: 05/26/22 21:37 Dose: 5,000 unit Hydralazine HCl (Hydralazine 20 Mg/Ml Vial) 0 mg IV Q2HP PRN PRN Reason: Hypertension Potassium Chloride 40 meq/ (Dextrose) 520 mls @ 130 mls/hr IV UD PRN PRN Reason: Potassium < 3 Magnesium Sulfate (Magnesium Sulfate) 2 gm in 50 mls @ 50 mls/hr IV UD PRN PRN Reason: Magnesium </= 1.6 Dextrose/Lactated Ringer's (Dextrose 5%-Lactated Ringers) 1,000 mls @ 150 mls/hr IV .Q6H40M [facility] Last Admin: 05/27/22 00:55 Dose: 150 mls/hr Morphine Sulfate (Morphine 4 Mg/Ml Vial) 0 mg IV Q3HP PRN PRN Reason: Pain Ondansetron HCl (Ondansetron 4 Mg/2 Ml Vial) 4 mg IV Q4HP PRN PRN Reason: Nausea And Vomiting Potassium Chloride (Potassium Chloride 20 Meq Tablet) 40 meq PO UD PRN PRN Reason: Potssium is 3-3.5 Potassium Chloride (Potassium Chloride 20 Meq Tablet) 40 meq PO UD PRN PRN Reason: Potassium < 3 Promethazine HCl (Promethazine 25 Mg/Ml Vial) 12.5 mg IV Q6HP PRN PRN Reason: Nausea And Vomiting Last Admin: 05/26/22 22:45 Dose: 12.5 mg Pyridostigmine [place] (Pyridostigmine 60 Mg Tablet) 60 mg PO QAM [facility] Sodium Chloride (0.9 % Sodium Chloride 10 Ml Syringe) 10 ml IV Q8 [facility] Last Admin: 05/27/22 05:06 Dose: Not Given Tamsulosin HCl (Tamsulosin 0.4 Mg Capsule) 0.4 mg PO QHS [facility] Last Admin: 05/26/22 21:36 Dose: 0.4 mg A/P Narrative A/P Narrative: A/P: *pSBO: -diet/fluids, NGT, imaging per Dr. Pleitez *Myasthenia gravis: -Patient takes pyridostigmine 60mg qAM & sometimes in evening if he feels he needs it. - *CKD III (base Cr~1.5): *HTN: on norvasc/acei, hctz -IV BP control for now, hold oral BP meds *Depression: *Obesity: BMI 36 *BPH: on flomax/finasteride *ppx: heparin Time Spent With Patient Time: Total time spent is greater than 50% in coordination of care (as documented) at patient's floor/unit and/or counseling patient: QUALITY Stroke Symptom Onset Unknown: No VTE Deep Vein Thrombosis/Pulmonary Embolism Present on Admission: No
[2022-05-27 07:53] LABS: ALT/SGPT 21 U/L (<40); AST/SGOT 20 U/L (<40); Albumin 3.6 gm/dL (3.2-5.2); Albumin/Globulin Ratio 1.3 (1.0-2.3); Alkaline Phosphatase 59 U/L (39-117); Bilirubin,Direct < 0.2 mg/dL (0-0.3); Bilirubin,Total 0.3 mg/dL (0.1-1.0); Blood Urea Nitrogen 15 mg/dL (8-23); Calcium 8.8 mg/dL (8.6-10.4); Carbon Dioxide 28 mmol/L (22-30); Chloride 105 mmol/L (96-108); Globulin 2.7 gm/dL (2.2-3.7); Glomerular Filtration Rate 45; Glucose 111 mg/dL (70-105); Lactate Dehydrogenase 204 U/L (135-225); Phosphorous 3.3 mg/dL (2.5-4.5); Triglycerides 148 mg/dL (<150)
[2022-05-27] MEDS: ACETAMINOPHEN 650 MG/65 ML BAG IV PRN ×2 (08:26→15:10)
[2022-05-27] MEDS: HEPARIN 5,000 UNIT/ML VIAL SQ SCH ×2 (09:54→20:20)
[2022-05-27] MEDS: PYRIDOSTIGMINE 60 MG TABLET PO SCH (09:54)
--- NOTE | 2022-05-27 10:17 | XRay Report ---
CLINICAL INFORMATION: Eval SBO COMPARISON: 05/26/2022. FINDINGS: NG tip is in the gastric body. Stomach, duodenum and proximal jejunum show slight decrease in caliber compatible with improving partial small bowel obstruction. Distal small bowel and colon remain relatively decompressed. There is no free air, soft tissue mass, organomegaly or pathologic calcification. IMPRESSION: NG tube in satisfactory position. Improving partial small bowel obstruction Interpreted and Authenticated by: Navarro Cordova 05/27/22
[2022-05-27] MEDS ORDERED: SUCRETS LOZENGE PO PRN (12:09)
--- NOTE | 2022-05-27 12:09 | General Surgery Progress Note ---
SUBJECTIVE Subjective Patient information: Note initiated : 05/27/22 at 12:03 pm Service Date, if different from initiated Date: [] Patient: Osman Messer 61 y/o M admitted on 05/26/22 for Bowl obstruction. Chief Complaint: [] Looks well, non toxic, significant NGT irritation but denies any abdominal pain at this time and is passing larger amounts of gas now Constitutional Vitals: Vital Signs Temp Pulse Resp BP Pulse Ox O2 Del Method 98.3 F 74 16 149/87 94 05/27/22 07:29 05/27/22 03:15 05/27/22 07:29 05/27/22 07:29 05/27/22 07:29 05/27/22 07:29 Period Temp Pulse Resp BP Sys/Briseno Pulse Ox O2 Del Method O2 Flow Rate Last 24 Hr 97.6 F-98.9 F 66-82 12-18 130-173/79-100 93-99 Room Air-Room Air Intake and Output 05/26/22 05/27/22 05/27/22 21:59 05:59 13:59 Intake Total 1300 1000 1065 Output Total 1075 1750 Balance 225 -750 1065 Weight 281 lb 9.6 oz Intake & Output: Intake & Output 05/26/22 05/27/22 05/27/22 21:59 05:59 13:59 Intake Total 1300 1000 1065 Output Total 1075 1750 Balance 225 -750 1065 Weight 281 lb 9.6 oz Intake: IV 1000 1000 1065 Sodium Chloride 0.9% 1,000 ml @ 1000 Wide Open IV BOLUS ONE Rx#: [id number] Dextrose 5%-Lactated Ringers 1, 1000 1000 000 ml @ 150 mls/hr IV .Q6H40M [facility] Rx#:[id number] Oral 300 0 Tube Feeding 0 0 Output: Gastric Drainage 600 1400 Left Nare 600 1400 Void Amount 475 350 Other: Urine Appearance Clear Clear Urine Color Dark Yellow Dark Yellow Exam: looks well, non toxic Respiratory Additional comments: normal effort, non labored Cardiovascular Cardiovascular exam: Present RRR GI/Abdominal Additional comments: belly is soft and non tender, non distended NGT in place and functional Extremities Exam Additional comments: well perfused A/P Assessment and plan (1) SBO (small bowel obstruction): Assessment and plan: HD #2 Small Bowel Obstruction, presumed adhesion related Seems to be improving with current conservative measures Continue NGT decompression for now Small Bowel Follow Through tomorrow or Sunday dependent on availability and clinical course Cepacol lozenge PRN, repeat plain films in AM Status: Acute Time Spent With Patient Time: Total time spent is greater than 50% in coordination of care (as documented) at patient's floor/unit and/or counseling patient:
[2022-05-27] MEDS: FINASTERIDE 5 MG TABLET PO SCH (20:20)
[2022-05-27] MEDS: TAMSULOSIN 0.4 MG CAPSULE PO SCH (20:20)
[2022-05-27] MEDS: ZOLPIDEM 5 MG TABLET PO SCH (20:20)
[2022-05-28] MEDS: PROMETHAZINE 25 MG/ML VIAL IV PRN ×2 (02:04→23:40)
[2022-05-28] MEDS: 0.9 % SODIUM CHLORIDE 10 ML SYRINGE IV SCH ×3 (05:52→20:08)
[2022-05-28] MEDS: DEXTROSE 5%-LR 1,000 ML IV SCH ×4 (06:13→22:27)
[2022-05-28 06:39] LABS: Hematocrit 41.5 % (40.1-51.0); Hemoglobin 13.9 g/dL (13.7-17.5); Mean Cell Volume 97.6 fL (80.0-100.0); Mean Corpuscular HGB Conc 33.5 g/dL (31.0-36.0); Mean Platelet Volume 10.7 fL (7.4-10.4); Platelet Count 178 K/mcL (140-440); RBC 4.25 M/mcL (4.63-6.08); Red Cell Distribution Width 11.9 % (11.5-14.5); WBC 7.1 K/mcL (4.5-11.0)
[2022-05-28 07:16] LABS: Blood Urea Nitrogen 17 mg/dL (8-23); Calcium 8.5 mg/dL (8.6-10.4); Carbon Dioxide 31 mmol/L (22-30); Chloride 106 mmol/L (96-108); Glomerular Filtration Rate 49; Glucose 107 mg/dL (70-105)
--- NOTE | 2022-05-28 07:40 | Internal Med Progress Note ---
SUBJECTIVE Subjective Patient information: Note initiated : 05/28/22 at 7:39 am Service Date, if different from initiated Date: [] Patient: Osman Messer 61 y/o M admitted on 05/26/22 for Bowl obstruction. Chief Complaint: [] Interval history: Patient presents the ED with abdominal pain nausea vomiting. Symptoms started yesterday morning and progressed. His abdominal pain is generalized with more specially in the upper abdomen.'s, severe achy. Last bowel movement was unusually small this morning. Obstruction had was [address] Pleitez was contacted. Patient carries a history of chronic kidney disease and myasthenia gravis and hy pertension. 05/27 Patient's nausea is present but improving. Abdominal pain present but improving. NG tube in place with output. Patient denies bowel movement but states he has flatus this morning. 05/28 Patient reports has had several small BMs overnight. He has flatus this morning. Abdominal pain and nausea continue to improve. NG output is declining. Review of Systems: denies headache/fever/chills/chest pain/cough/dyspnea/diarrhea. Otherwise see above. Constitutional Vitals: Vital Signs Temp Pulse Resp BP Pulse Ox O2 Del Method 98.0 F 56 L 16 136/76 98 05/28/22 04:05 05/28/22 04:05 05/28/22 04:05 05/28/22 04:05 05/28/22 04:05 05/28/22 04:05 Period Temp Pulse Resp BP Sys/Briseno Pulse Ox O2 Del Method O2 Flow Rate Last 24 Hr 97.9 F-99.0 F 56-74 16-20 125-146/76-89 95-98 Room Air-Room Air Intake and Output 05/27/22 05/28/22 05/28/22 21:59 05:59 13:59 Intake Total 1065 1695 1000 Output Total 500 1400 Balance 265 776 5493 Weight 126.643 kg Intake & Output: Intake & Output 05/27/22 05/28/22 05/28/22 21:59 05:59 13:59 Intake Total 1065 1695 1000 Output Total 500 1400 Balance 847 989 4718 Weight 126.643 kg Intake: IV 1065 1635 1000 Dextrose 5%-Lactated Ringers 1, 1000 1635 1000 000 ml @ 150 mls/hr IV .Q6H40M [facility] Rx#:[id number] Oral 60 Tube Feeding 0 0 Output: Gastric Drainage 500 700 Left Nare 500 700 Void Amount 700 # of times incontinent of urine 0 Other: Urine Appearance Clear Urine Color Bright Yellow Stool Size Moderate Stool Color Brown Stool Consistency Liquid # Voids 11 # Bowel Movements 2 Exam: General: Alert, Awake, No acute Distress, obese Eyes/N/T: EOMI, Head/Neck: neck supple, CV: RRR, No murmurs, Pulm: Clear b/l, no wheezing/rhonchi/rales Abd: soft, distended, improved TTP, + BS x4 Ext: no clubbing/cyanosis/edema Neuro: Alert, no focal deficits, moves all extremities, Skin: warm/dry OBJ DATA Labs CBC & Chem 7: 05/28/22 05:34 05/28/22 05:34 Labs: Abnormal Lab Results 05/28/22 05/28/22 05/27/22 05:34 05:34 05:54 RBC 4.25 L 4.62 L MPV 10.7 H Lymph % (Auto) Absolute Neutrophils Carbon Dioxide 31 H POC Total CO2 Anion Gap 5.0 L POC BUN Creatinine 1.5 H POC Creatinine Glucose 107 H POC Glucose Calcium 8.5 L Urine Protein Urine Mucus 05/27/22 05/26/22 05/26/22 05:54 14:50 12:46 RBC MPV Lymph % (Auto) Absolute Neutrophils Carbon Dioxide POC Total CO2 32.0 H Anion Gap POC BUN 27 H Creatinine 1.6 H POC Creatinine 1.6 H Glucose 111 H POC Glucose 110 H Calcium Urine Protein Trace A Urine Mucus Few A 05/26/22 12:37 RBC MPV Lymph % (Auto) 14.5 L Absolute Neutrophils 8.30 H Carbon Dioxide POC Total CO2 Anion Gap POC BUN Creatinine POC Creatinine Glucose POC Glucose Calcium Urine Protein Urine Mucus Meds: Medications Acetaminophen (Acetaminophen 325 Mg Tablet) 650 mg PO Q6HP PRN; Protocol PRN Reason: Per Pain Protocol/Fever > 101 Albuterol/Ipratropium (Ipratropium/Albuterol 3 Ml Ampul.Neb) 3 ml NEB Q4HP PRN PRN Reason: Shortness Of Breath Benzocaine (Benzocaine 1 [place] Bottle) 1 spray TOPICAL PRN PRN PRN Reason: Sore Throat Last Admin: 05/27/22 20:20 Dose: 1 spray Finasteride (Finasteride 5 Mg Tablet) 5 mg PO QPM [facility] Last Admin: 05/27/22 20:20 Dose: 5 mg Heparin Sodium (Porcine) (Heparin 5,000 Unit/Ml Vial) 5,000 unit SQ Q12 [facility] Last Admin: 05/27/22 20:20 Dose: 5,000 unit Hydralazine HCl (Hydralazine 20 Mg/Ml Vial) 0 mg IV Q2HP PRN PRN Reason: Hypertension Potassium Chloride 40 meq/ (Dextrose) 520 mls @ 130 mls/hr IV UD PRN PRN Reason: Potassium < 3 Magnesium Sulfate (Magnesium Sulfate) 2 gm in 50 mls @ 50 mls/hr IV UD PRN PRN Reason: Magnesium </= 1.6 Acetaminophen (Ofirmev) 650 mg in 65 mls @ 130 mls/hr IV Q6HP PRN; Protocol PRN Reason: PAIN/FEVER > 101 Last Infusion: 05/27/22 16:08 Dose: Infused Dextrose/Lactated Ringer's (Dextrose 5%-Lactated Ringers) 1,000 mls @ 125 mls/hr IV .Q8H [facility] Last Admin: 05/28/22 06:13 Dose: 125 mls/hr Morphine Sulfate (Morphine 4 Mg/Ml Vial) 0 mg IV Q3HP PRN PRN Reason: Pain Last Admin: 05/27/22 21:08 Dose: 2 mg Ondansetron HCl (Ondansetron 4 Mg/2 Ml Vial) 4 mg IV Q4HP PRN PRN Reason: Nausea And Vomiting Potassium Chloride (Potassium Chloride 20 Meq Tablet) 40 meq PO UD PRN PRN Reason: Potssium is 3-3.5 Potassium Chloride (Potassium Chloride 20 Meq Tablet) 40 meq PO UD PRN PRN Reason: Potassium < 3 Promethazine HCl (Promethazine 25 Mg/Ml Vial) 12.5 mg IV Q6HP PRN PRN Reason: Nausea And Vomiting Last Admin: 05/28/22 02:04 Dose: 12.5 mg Pyridostigmine [place] (Pyridostigmine 60 Mg Tablet) 60 mg PO QAM [facility] Last Admin: 05/27/22 09:54 Dose: 60 mg Sodium Chloride (0.9 % Sodium Chloride 10 Ml Syringe) 10 ml IV Q8 [facility] Last Admin: 05/28/22 05:52 Dose: Not Given Tamsulosin HCl (Tamsulosin 0.4 Mg Capsule) 0.4 mg PO QHS [facility] Last Admin: 05/27/22 20:20 Dose: 0.4 mg Zolpidem Tartrate (Zolpidem 5 Mg Tablet) 5 - 10 mg PO QHS [facility] Last Admin: 05/27/22 20:20 Dose: 5 mg A/P Narrative A/P Narrative: A/P: *pSBO: -diet/fluids, NGT, imaging per Dr. Pleitez *Myasthenia gravis: -Patient takes pyridostigmine 60mg qAM & sometimes in evening if he feels he needs it. - *CKD III (base Cr~1.5): *HTN: on norvasc/acei, hctz -IV BP control for now, hold oral BP meds *Depression: *Obesity: BMI 36 *BPH: on flomax/finasteride *ppx: heparin Time Spent With Patient Time: Total time spent is greater than 50% in coordination of care (as documented) at patient's floor/unit and/or counseling patient: QUALITY Stroke Symptom Onset Unknown: No VTE Deep Vein Thrombosis/Pulmonary Embolism Present on Admission: No
--- NOTE | 2022-05-28 07:53 | XRay Report ---
CLINICAL INFORMATION: eval SBO COMPARISON: None. FINDINGS: NG tube overlies the gastric fundus The stool gas pattern now appears unremarkable-no plain film evidence of small bowel obstruction. There is no free air, soft tissue mass, organomegaly or pathologic calcification. IMPRESSION: Normal abdomen-interval resolution small bowel obstruction Interpreted and Authenticated by: Navarro Cordova 05/28/22
[2022-05-28] MEDS: HEPARIN 5,000 UNIT/ML VIAL SQ SCH ×2 (08:41→20:07)
[2022-05-28] MEDS: PYRIDOSTIGMINE 60 MG TABLET PO SCH (08:42)
--- NOTE | 2022-05-28 10:32 | General Surgery Progress Note ---
SUBJECTIVE Subjective Patient information: Note initiated : 05/28/22 at 10:28 am Service Date, if different from initiated Date: [] Patient: Osman Messer 61 y/o M admitted on 05/26/22 for Bowl obstruction. Chief Complaint: [HD#3 SBO] Continues to feel improved clinically, passing gas, had a small stool yesterday. Pain essentially resolved and feels more or less back to baseline Constitutional Vitals: Vital Signs Temp Pulse Resp BP Pulse Ox O2 Del Method 97.8 F 66 15 146/93 96 05/28/22 07:41 05/28/22 07:41 05/28/22 07:41 05/28/22 07:41 05/28/22 07:41 05/28/22 07:41 Period Temp Pulse Resp BP Sys/Briseno Pulse Ox O2 Del Method O2 Flow Rate Last 24 Hr 97.8 F-99.0 F 56-74 15-20 125-146/76-93 95-98 Room Air-Room Air Intake and Output 05/27/22 05/28/22 05/28/22 21:59 05:59 13:59 Intake Total 1065 1695 1000 Output Total 500 1400 Balance 595 635 2995 Weight 279 lb 3.2 oz Intake & Output: Intake & Output 05/27/22 05/28/22 05/28/22 21:59 05:59 13:59 Intake Total 1065 1695 1000 Output Total 500 1400 Balance 895 731 2601 Weight 279 lb 3.2 oz Intake: IV 1065 1635 1000 Dextrose 5%-Lactated Ringers 1, 1000 1635 1000 000 ml @ 150 mls/hr IV .Q6H40M [facility] Rx#:[id number] Oral 60 Tube Feeding 0 0 Output: Gastric Drainage 500 700 Left Nare 500 700 Void Amount 700 # of times incontinent of urine 0 Other: Urine Appearance Clear Urine Color Bright Yellow Stool Size Moderate Stool Color Brown Stool Consistency Liquid # Voids 11 # Bowel Movements 2 Exam: Looks non toxic, NAD GI/Abdominal Additional comments: NGT in place, belly somewhat obese but non distended A/P Assessment and plan (1) SBO (small bowel obstruction): Assessment and plan: Resolving SBO Will go ahead with SBFT today to assure no evidence of residual partial SBO Sips/chips/popsicles ok Status: Acute Time Spent With Patient Time: Total time spent is greater than 50% in coordination of care (as documented) at patient's floor/unit and/or counseling patient:
[2022-05-28] MEDS ORDERED: DIATRIZOATE MEGLU/DIATRIZO SOD 120 ML BOTTLE PO ONE (12:29)
--- NOTE | 2022-05-28 13:27 | XRay Report ---
CLINICAL INFORMATION: Mid small bowel obstruction COMPARISON: None. TECHNIQUE: Following piece dyer imaging, water-soluble enteric contrast was infused through the indwelling catheter and serial imaging was obtained for 120 minutes. FINDINGS: Stomach and duodenum are unremarkable. The proximal jejunum is only mildly dilated to the transition point mid jejunum. Distal small bowel is only slightly decompressed. Small bowel transit time is approximately 70 minutes. IMPRESSION: Mild persistent small bowel obstruction mid jejunum due to adhesions or stricture. It has improved considerably since the CT two days ago Interpreted and Authenticated by: Navarro Cordova 05/28/22
[2022-05-28] MEDS: TAMSULOSIN 0.4 MG CAPSULE PO SCH (20:07)
[2022-05-28] MEDS: FINASTERIDE 5 MG TABLET PO SCH (20:08)
[2022-05-28] MEDS: ZOLPIDEM 5 MG TABLET PO SCH (20:08)
[2022-05-29] MEDS: DEXTROSE 5%-LR 1,000 ML IV SCH (03:11)
[2022-05-29] MEDS: 0.9 % SODIUM CHLORIDE 10 ML SYRINGE IV SCH ×2 (06:07→06:08)
[2022-05-29] MEDS: BENZOCAINE 1 SPRAY BOTTLE TOPICAL PRN (06:07)
--- NOTE | 2022-05-29 07:14 | Internal Med Progress Note ---
SUBJECTIVE Subjective Patient information: Note initiated : 05/29/22 at 7:13 am Service Date, if different from initiated Date: [] Patient: Osman Messer 61 y/o M admitted on 05/26/22 for Bowl obstruction. Chief Complaint: [] Interval history: Patient presents the ED with abdominal pain nausea vomiting. Symptoms started yesterday morning and progressed. His abdominal pain is generalized with more specially in the upper abdomen.'s, severe achy. Last bowel movement was unusually small this morning. Obstruction had was [address] Pleitez was contacted. Patient carries a history of chronic kidney disease and myasthenia gravis and hy pertension. 05/27 Patient's nausea is present but improving. Abdominal pain present but improving. NG tube in place with output. Patient denies bowel movement but states he has flatus this morning. 05/28 Patient reports has had several small BMs overnight. He has flatus this morning. Abdominal pain and nausea continue to improve. NG output is declining. 05/29 Patient having bowel movements and tolerating clear liquid diet. Review of Systems: denies headache/fever/chills/chest pain/cough/dyspnea/diarrhea. Otherwise see above. Constitutional Vitals: Vital Signs Temp Pulse Resp BP Pulse Ox O2 Del Method 98.2 F 61 18 142/80 98 05/29/22 06:37 05/29/22 06:37 05/29/22 06:37 05/29/22 06:37 05/29/22 06:37 05/29/22 06:37 Period Temp Pulse Resp BP Sys/Briseno Pulse Ox O2 Del Method O2 Flow Rate Last 24 Hr 97.8 F-99.7 F 58-66 15-18 126-158/67-93 96-98 Room Air-Room Air Intake and Output 05/28/22 05/29/22 05/29/22 21:59 05:59 13:59 Intake Total 1050 1560 Output Total 1150 1595 1175 Balance - Weight 126.824 kg Intake & Output: Intake & Output 05/28/22 05/29/22 05/29/22 21:59 05:59 13:59 Intake Total 1050 1560 Output Total 1150 1595 1175 Balance - Weight 126.824 kg Intake: IV 1000 1000 Dextrose 5%-Lactated Ringers 1, 1000 1000 000 ml @ 100 mls/hr IV .Q10H [facility] Rx#:[id number] Oral 50 560 Tube Feeding 0 Output: Gastric Drainage 1000 1200 950 Left Nare 1000 1200 950 Void Amount 150 Urine/Stool Mix 395 225 Other: Urine Appearance Clear Urine Color Bright Yellow Urine Odor Normal Stool Color Brown Stool Consistency Liquid # Voids 1 # Bowel Movements 1 Exam: General: Alert, Awake, No acute Distress, obese Eyes/N/T: EOMI, Head/Neck: neck supple, CV: RRR, No murmurs, Pulm: Clear b/l, no wheezing/rhonchi/rales Abd: soft, mildly distended, nontender, + BS x4 Ext: no clubbing/cyanosis/edema Neuro: Alert, no focal deficits, moves all extremities, Skin: warm/dry OBJ DATA Labs CBC & Chem 7: 05/28/22 05:34 05/28/22 05:34 Labs: Abnormal Lab Results 05/28/22 05/28/22 05/27/22 05:34 05:34 05:54 RBC 4.25 L 4.62 L MPV 10.7 H Lymph % (Auto) Absolute Neutrophils Carbon Dioxide 31 H POC Total CO2 Anion Gap 5.0 L POC BUN Creatinine 1.5 H POC Creatinine Glucose 107 H POC Glucose Calcium 8.5 L Urine Protein Urine Mucus 05/27/22 05/26/22 05/26/22 05:54 14:50 12:46 RBC MPV Lymph % (Auto) Absolute Neutrophils Carbon Dioxide POC Total CO2 32.0 H Anion Gap POC BUN 27 H Creatinine 1.6 H POC Creatinine 1.6 H Glucose 111 H POC Glucose 110 H Calcium Urine Protein Trace A Urine Mucus Few A 05/26/22 12:37 RBC MPV Lymph % (Auto) 14.5 L Absolute Neutrophils 8.30 H Carbon Dioxide POC Total CO2 Anion Gap POC BUN Creatinine POC Creatinine Glucose POC Glucose Calcium Urine Protein Urine Mucus Meds: Medications Acetaminophen (Acetaminophen 325 Mg Tablet) 650 mg PO Q6HP PRN; Protocol PRN Reason: Per Pain Protocol/Fever > 101 Albuterol/Ipratropium (Ipratropium/Albuterol 3 Ml Ampul.Neb) 3 ml NEB Q4HP PRN PRN Reason: Shortness Of Breath Benzocaine (Benzocaine 1 Pooler Bottle) 1 spray TOPICAL PRN PRN PRN Reason: Sore Throat Last Admin: 05/29/22 06:07 Dose: 1 spray Finasteride (Finasteride 5 Mg Tablet) 5 mg PO QPM [facility] Last Admin: 05/28/22 20:08 Dose: 5 mg Heparin Sodium (Porcine) (Heparin 5,000 Unit/Ml Vial) 5,000 unit SQ Q12 [facility] Last Admin: 05/28/22 20:07 Dose: 5,000 unit Hydralazine HCl (Hydralazine 20 Mg/Ml Vial) 0 mg IV Q2HP PRN PRN Reason: Hypertension Last Admin: 05/29/22 03:16 Dose: 10 mg Potassium Chloride 40 meq/ (Dextrose) 520 mls @ 130 mls/hr IV UD PRN PRN Reason: Potassium < 3 Magnesium Sulfate (Magnesium Sulfate) 2 gm in 50 mls @ 50 mls/hr IV UD PRN PRN Reason: Magnesium </= 1.6 Acetaminophen (Ofirmev) 650 mg in 65 mls @ 130 mls/hr IV Q6HP PRN; Protocol PRN Reason: PAIN/FEVER > 101 Last Infusion: 05/27/22 16:08 Dose: Infused Dextrose/Lactated Ringer's (Dextrose 5%-Lactated Ringers) 1,000 mls @ 100 mls/hr IV .Q10H [facility] Last Admin: 05/29/22 03:11 Dose: 100 mls/hr Morphine Sulfate (Morphine 4 Mg/Ml Vial) 0 mg IV Q3HP PRN PRN Reason: Pain Last Admin: 05/27/22 21:08 Dose: 2 mg Ondansetron HCl (Ondansetron 4 Mg/2 Ml Vial) 4 mg IV Q4HP PRN PRN Reason: Nausea And Vomiting Potassium Chloride (Potassium Chloride 20 Meq Tablet) 40 meq PO UD PRN PRN Reason: Potssium is 3-3.5 Potassium Chloride (Potassium Chloride 20 Meq Tablet) 40 meq PO UD PRN PRN Reason: Potassium < 3 Promethazine HCl (Promethazine 25 Mg/Ml Vial) 12.5 mg IV Q6HP PRN PRN Reason: Nausea And Vomiting Last Admin: 05/28/22 23:40 Dose: 12.5 mg Pyridostigmine [place] (Pyridostigmine 60 Mg Tablet) [facility] [place] Admin: 05/28/22 08:42 Dose: 60 mg Sodium Chloride (0.9 % Sodium Chloride 10 Ml Syringe) 10 ml IV Q8 [facility] Last Admin: 05/29/22 06:08 Dose: Not Given Tamsulosin HCl (Tamsulosin 0.4 Mg Capsule) 0.4 mg PO QHS [facility] Last Admin: 05/28/22 20:07 Dose: 0.4 mg Zolpidem Tartrate (Zolpidem 5 Mg Tablet) 5 - 10 mg PO QHS [facility] Last Admin: 05/28/22 20:08 Dose: 5 mg A/P Narrative A/P Narrative: A/P: *pSBO: improving -diet/fluids, NGT, imaging per Dr. Pleitez *Myasthenia gravis: -Patient takes pyridostigmine 60mg qAM & sometimes in evening if he feels he needs it. - *CKD III (base Cr~1.5): *HTN: on norvasc/acei, hctz -restart oral BP meds *Depression: *Obesity: BMI 36 *BPH: on flomax/finasteride *ppx: heparin Time Spent With Patient Time: Total time spent is greater than 50% in coordination of care (as documented) at patient's floor/unit and/or counseling patient: QUALITY Stroke Symptom Onset Unknown: No VTE Deep Vein Thrombosis/Pulmonary Embolism Present on Admission: No
[2022-05-29] MEDS: HEPARIN 5,000 UNIT/ML VIAL SQ SCH (07:43)
[2022-05-29] MEDS: PYRIDOSTIGMINE 60 MG TABLET PO SCH (07:43)
[2022-05-29] MEDS: ACETAMINOPHEN 650 MG/65 ML BAG IV PRN (08:03)
[2022-05-29] MEDS ORDERED: amLODIPine 10 MG TABLET PO SCH (09:00)
[2022-05-29] MEDS ORDERED: LISINOPRIL 20 MG TABLET PO SCH (09:00)
[2022-05-29] MEDS ORDERED: ESCITALOPRAM 10 MG TABLET PO SCH (09:00)
--- NOTE | 2022-05-29 09:45 | General Surgery Progress Note ---
SUBJECTIVE Subjective Patient information: Note initiated : 05/29/22 at 9:41 am Service Date, if different from initiated Date: [] Patient: Osman Messer 61 y/o M admitted on 05/26/22 for Bowl obstruction. Chief Complaint: [] HD #4 SBO Small bowel follow through yesterday showed normal transit to colon with only minimal residual proximal SB distension. Constitutional Vitals: Vital Signs Temp Pulse Resp BP Pulse Ox O2 Del Method 98.2 F 61 18 142/80 98 05/29/22 06:37 05/29/22 06:37 05/29/22 06:37 05/29/22 06:37 05/29/22 06:37 05/29/22 06:37 Period Temp Pulse Resp BP Sys/Briseno Pulse Ox O2 Del Method O2 Flow Rate Last 24 Hr 98.2 F-99.7 F 58-66 16-18 126-158/67-90 96-98 Room Air-Room Air Intake and Output 05/28/22 05/29/22 05/29/22 21:59 05:59 13:59 Intake Total 1050 1560 315 Output Total 1150 1595 1175 Balance -100 -35 -860 Weight 279 lb 9.6 oz Intake & Output: Intake & Output 05/28/22 05/29/22 05/29/22 21:59 05:59 13:59 Intake Total 1050 1560 315 Output Total 1150 1595 1175 Balance -100 -35 -860 Weight 279 lb 9.6 oz Intake: IV 1000 1000 65 Dextrose 5%-Lactated Ringers 1, 1000 1000 000 ml @ 100 mls/hr IV .Q10H [facility] Rx#:[id number] Oral 50 560 220 Tube Feeding 0 30 Output: Gastric Drainage 1000 1200 950 Left Nare 1000 1200 950 Void Amount 150 Urine/Stool Mix 395 225 Other: Percent of Meal Consumed 100% Feeding Ability Independent Urine Appearance Clear Urine Color Bright Yellow Urine Odor Normal Stool Color Brown Stool Consistency Liquid # Voids 1 # Bowel Movements 1 Exam: Looks well NAD GI/Abdominal Additional comments: soft and non distended, non tender, NGT removed at bedside without issue A/P Narrative A/P Narrative: HD #4 presumed adhesion related SBO Doing Well - regular diet and then home today Clinic follow up 2-4 weeks, sooner if need be Time Spent With Patient Time: Total time spent is greater than 50% in coordination of care (as documented) at patient's floor/unit and/or counseling patient:
[2022-05-29] MEDS ORDERED: traZODone HCL 50 MG TABLET PO SCH (21:00)
--- NOTE | 2022-05-30 08:32 | Discharge Summary ---
DATE OF ADMISSION: 05/26/2022 DATE OF DISCHARGE: 05/29/2022 ADMITTING DIAGNOSIS: Partial small bowel obstruction. DISCHARGE DIAGNOSIS: Partial small bowel obstruction. ADMITTING PHYSICIAN: Minh Pleitez M.D. INDICATIONS FOR ADMISSION AND HOSPITAL COURSE: The patient is a 61-year-old male who presented to the emergency room after fairly abrupt and short-term onset of increasing abdominal pain and discomfort that ultimately resulted in a visit to the emergency room on 05/26/2022. He was found to have evidence of some distention, as well as a CT scan that demonstrated a partial small obstruction that was fairly high-grade. An NG tube was placed, and we were asked to see him in consultation and recommended admission. He did well ultimately in the hospital under conservative management of NG tube, decompression, bowel rest, and IV fluids. He improved fairly dramatically. By the morning of hospital day 2 on 05/27/2022, he was having return of bowel function but still had fairly significant elevated NG tube outputs, but x-rays were normalizing. By 05/28/2022, he looked very good. A small bowel follow-through demonstrated near complete resolution of any proximal small bowel distention above the area of obstruction and prompt and normal transit of contrast into the right colon. His NG tube removed, and he was started on a diet and felt to be ready for discharge by 05/29/2022. DISPOSITION: Home with clinic followup. IN-HOSPITAL PROCEDURES: Small bowel follow-through on 05/28/2022. IN-HOSPITAL COMPLICATIONS: None apparent. BW:andrea Job ID: [id number] Doc ID: [id number] Minh Pleitez M.D.
== END 2022-05-29 04:45 | disposition home or self-care (01) | DRG 390 ==
LOC: ED 11:10 → MEDSUR 17:05
PROVIDERS: ADMIT Surgery Surgical Critical Care; ATTEND Surgery Surgical Critical Care